=== PATIENT | male | born 1955 | race Caucasian/White ===

== ENCOUNTER 2020-07-19 05:19 | Observation (INO) | payer MEDICARE ==
[2020-07-19 05:49] LABS: #Basophils 0.1 10x3/uL (0.0-0.2); #Eosinphils 0.1 10x3/uL (0.0-0.5); #Neutrophils 9.6 10x3/uL (1.5-8.4); %Basophils 0.5 % (0.0-2.0); %Eosinophils 0.9 % (0.0-6.0); %Lymphocytes 18.6 % (18.0-47.0); %Monocytes 7.1 % (0.0-10.0); %Neutrophils 72.2 % (40.0-75.0); Hemoglobin 16.4 g/dL (13.5-17.5); Mean Corpuscular HGB CONC 34.4 g/dL (32.0-36.0); Mean Corpuscular Hemoglobin 33.2 pg (27.0-33.0); Mean Corpuscular Volume 96.6 fl (81.2-95.1); Mean Platelet Volume 10.1 fl (7.4-10.4); Platelet Count 179 10x3/uL (150-450); RBC Distribution Width 13.2 % (11.5-14.5); Red Blood Cell (RBC) Count 4.94 10x6/uL (4.32-5.72); White Blood Cell (WBC) Count 13.4 10x3/uL (3.5-10.5)
[2020-07-19] MEDS ORDERED: Ondansetron PF 4 MG/2 ML Vial ONE (05:56)
[2020-07-19] MEDS ORDERED: Morphine 4 MG/ML VIAL ONE (05:56)
[2020-07-19] MEDS ORDERED: Nitroglycerin 2% Ointment 1 INCH/1 GM Packet ONE (05:56)
[2020-07-19 06:10] LABS: ALT (SGPT) 29 U/L (8-55); AST (SGOT) 31 U/L (5-34); Albumin 4.2 g/dL (3.4-4.8); Alkaline Phosphatase 130 U/L (40-110); Anion Gap 15 mmol/L (10-20); BUN (Urea Nitrogen) 5 mg/dL (8.4-25.7); Bilirubin, Total 0.7 mg/dL (0.2-1.2); Calc. Creatinine Clearance 0 mL/min (70-130); Calcium 8.7 mg/dL (7.8-10.44); Carbon Dioxide 31 mmol/L (23-31); Chloride 96 mmol/L (98-107); Globulin 3.1 g/dL (2.4-3.5); Glucose 102 mg/dL (80-115); Lipase 30 U/L (8-78); Magnesium 1.4 mg/dL (1.6-2.6); Potassium 3.1 mmol/L (3.5-5.1); Protein, Total 7.3 g/dL (5.8-8.1); Sodium 139 mmol/L (136-145)
[2020-07-19 06:19] LABS: Bilirubin Neg (Negative); Blood, Urine 25 (Negative); Clarity Clear (Clear); Glucose, Urine (Dipstick) Normal (Negative); Ketone, Urine Negative (Negative); Leukocyte 25 (Negative); Nitrite Negative (Negative); Protein, Urine (Dipstick) 30 mg/dl (Neg-Trace); Specific Gravity, Urine 1.015 (1.002-1.036)
[2020-07-19 06:36] LABS: Bacteria/HPF None Seen HPF (None Seen); RBC/HPF 0-3 HPF (0-3); Squamous Epithelial None Seen HPF (0-3); WBC/HPF None Seen HPF (0-3)
[2020-07-19 07:00] LABS: SARS-CoV-2 NAA Rapid Test Not Detected (NotDetected)
[2020-07-19] MEDS ORDERED: Potassium Chloride 20 MEQ TAB PO SCH ×2 (07:00→12:00)
[2020-07-19] MEDS ORDERED: Fentanyl 100 MCG/2 ML VIAL ONE (07:23)
[2020-07-19] MEDS ORDERED: Labetalol HCl 100 MG/20 ML VIAL ONE (07:24)
[2020-07-19] MEDS ORDERED: Aspirin Chewable 81 MG TAB PO SCH (09:00)
[2020-07-19 10:47] LABS: Troponin I Less than 0.010 ng/mL (< 0.028)
[2020-07-19 11:44] VITALS: BMI 28.8
[2020-07-19] MEDS ORDERED: Aspirin 325 MG TAB PO SCH (12:00)
[2020-07-19] MEDS ORDERED: Magnesium 2 GM/50 ML 2 GM in Premix Bag 1 BAG IVPB SCH (12:00)
[2020-07-19 12:32] LABS: Troponin I Less than 0.010 ng/mL (< 0.028)
[2020-07-19] MEDS ORDERED: Ketorolac Tromethamine 30 MG/ML VIAL IVP SCH (13:00)
[2020-07-19] MEDS ORDERED: Nitroglycerin 2% Ointment 1 INCH/1 GM Packet TOP SCH (14:00)
[2020-07-19 14:05] LABS: Cardiac Risk 3.3 (Less than 4.5)
[2020-07-19 17:12] VITALS: BP 114/70; TEMP 97.7
[2020-07-19] MEDS ORDERED: Flecainide 50 MG TAB PO SCH (21:00)
[2020-07-19] MEDS ORDERED: Apixaban 5 MG TAB PO SCH (21:00)
[2020-07-19] MEDS ORDERED: Atorvastatin Calcium 10 MG TAB PO SCH (21:00)
== END 2020-07-19 18:13 | disposition home or self-care (01) ==
LOC: CSHERS 05:19 → CSHTELE 11:29
PROVIDERS: ADMIT Internal Medicine; ATTEND Internal Medicine
DX: R07.89 Other chest pain (principal); I11.0 Hypertensive heart disease with heart failure; I50.32 Chronic diastolic (congestive) heart failure; I25.10 Atherosclerotic heart disease of native coronary artery without angina pectoris; I25.2 Old myocardial infarction; Z95.5 Presence of coronary angioplasty implant and graft; I48.91 Unspecified atrial fibrillation; Z79.01 Long term (current) use of anticoagulants; F17.210 Nicotine dependence, cigarettes, uncomplicated; E87.6 Hypokalemia; E83.42 Hypomagnesemia; D72.829 Elevated white blood cell count, unspecified; Z20.822 Contact with and (suspected) exposure to COVID-19
CPT/HCPCS: 71045; 80053; 80061; 83690; 83735; 83880; 84484 ×2; 85025; 85379; 93005; 96374; 96375 ×2; 99285; G0378; U0002; 36415; 81003; 81015; J1885; J2270; J2405; J3010; J3475

== ENCOUNTER 2021-03-20 18:31 | Observation (INO) | payer MEDICARE ==
[2021-03-20 18:48] LABS: #Eosinphils 0.1 10x3/uL (0.0-0.5); #Monocytes 0.6 10x3/uL (0.0-1.1); #Neutrophils 5.2 10x3/uL (1.5-8.4); %Basophils 0.5 % (0.0-2.0); %Eosinophils 0.8 % (0.0-6.0); %Monocytes 7.7 % (0.0-10.0); %Neutrophils 64.7 % (40.0-75.0); Hemoglobin 15.7 g/dL (13.5-17.5); Mean Corpuscular HGB CONC 34.1 g/dL (32.0-36.0); Mean Corpuscular Hemoglobin 34.9 pg (27.0-33.0); Mean Corpuscular Volume 102.2 fl (81.2-95.1); Mean Platelet Volume 9.7 fl (7.4-10.4); Platelet Count 155 10x3/uL (150-450); RBC Distribution Width 11.9 % (11.5-14.5)
[2021-03-20 19:01] LABS: ALT (SGPT) 28 U/L (8-55); AST (SGOT) 38 U/L (5-34); Albumin 4.2 g/dL (3.4-4.8); Alkaline Phosphatase 116 U/L (40-110); Anion Gap 13 mmol/L (10-20); BUN (Urea Nitrogen) 8 mg/dL (8.4-25.7); Bilirubin, Total 0.6 mg/dL (0.2-1.2); Calc. Creatinine Clearance 0 mL/min (70-130); Calcium 8.6 mg/dL (7.8-10.44); Carbon Dioxide 31 mmol/L (23-31); Chloride 96 mmol/L (98-107); Globulin 2.5 g/dL (2.4-3.5); Glucose 105 mg/dL (80-115); Potassium 3.1 mmol/L (3.5-5.1); Protein, Total 6.7 g/dL (5.8-8.1); Sodium 137 mmol/L (136-145)
[2021-03-20] MEDS ORDERED: Acetaminophen 500 MG TAB ONE (22:13)
[2021-03-21 04:14] LABS: SARS-CoV-2 NAA Rapid Test Not Detected (NotDetected)
[2021-03-21 04:39] LABS: Cardiac Risk 3.3 (Less than 4.5); Cholesterol 144 mg/dl (< 200 Desired); HDL Cholesterol 43 mg/dL (>60 Neg Risk); LDL Cholesterol, Calculated 62 mg/dL; Magnesium 1.4 mg/dL (1.6-2.6); Triglycerides 195 mg/dL (Less than 150)
[2021-03-21 04:46] LABS: Troponin I 0.171 ng/mL (< 0.028)
[2021-03-21] MEDS: Potassium Chloride 20 MEQ TAB PO SCH ×2 (06:00→13:03)
[2021-03-21] MEDS: Nitroglycerin 2% Ointment 1 INCH/1 GM Packet TOP SCH ×2 (06:00→13:03)
[2021-03-21] MEDS ORDERED: Potassium Chloride 20 MEQ TAB ONE (06:06)
[2021-03-21] MEDS ORDERED: Nitroglycerin 2% Ointment 1 INCH/1 GM Packet ONE (06:07)
[2021-03-21 06:43] LABS: Anion Gap 14 mmol/L (10-20); BUN (Urea Nitrogen) 7 mg/dL (8.4-25.7); Calc. Creatinine Clearance 0 mL/min (70-130); Calcium 8.4 mg/dL (7.8-10.44); Carbon Dioxide 28 mmol/L (23-31); Chloride 99 mmol/L (98-107); Glucose 112 mg/dL (80-115); Potassium 3.3 mmol/L (3.5-5.1); Sodium 138 mmol/L (136-145)
[2021-03-21 06:45] LABS: Troponin I 0.156 ng/mL (< 0.028)
[2021-03-21] MEDS ORDERED: Spironolactone 25 MG TAB PO SCH (08:00)
[2021-03-21] MEDS ORDERED: Clopidogrel Bisulfate 75 MG TAB PO SCH (09:00)
[2021-03-21] MEDS ORDERED: Losartan Potassium 50 MG TAB PO SCH (09:00)
[2021-03-21] MEDS ORDERED: Flecainide 50 MG TAB PO SCH (09:00)
[2021-03-21] MEDS ORDERED: Ventolin HFA Inhaler 60 PUFF INHALER ONE (09:38)
[2021-03-21] MEDS ORDERED: Clopidogrel Bisulfate 75 MG TAB ONE (09:38)
[2021-03-21] MEDS ORDERED: Metoprolol Tartrate 25 MG TAB ONE (09:38)
[2021-03-21] MEDS ORDERED: Losartan Potassium 50 MG TAB ONE (09:40)
[2021-03-21] MEDS: Albuterol Sulfate 2.5 mg/3 ml Neb EZPAP SCH ×2 (09:49→13:08)
[2021-03-21 10:54] VITALS: BMI 28.8
[2021-03-21] MEDS ORDERED: Potassium Chloride 20 MEQ TAB PO SCH (13:00)
[2021-03-21 13:02] VITALS: BP 179/89; TEMP 98.2
[2021-03-21] MEDS ORDERED: Rivaroxaban 10 MG TAB PO SCH (18:00)
[2021-03-21] MEDS ORDERED: Atorvastatin Calcium 10 MG TAB PO SCH (21:00)
== END 2021-03-21 14:51 | disposition home or self-care (01) ==
LOC: CSHERS 18:31 → CSHTELE 03-21 00:31 → INTOOBSV 03-21 00:31 → CSHERHOLD 03-21 03:16 → CSHTELE 03-21 08:56
PROVIDERS: ADMIT Family Medicine; ATTEND Family Medicine
DX: R07.9 Chest pain, unspecified (principal); I25.10 Atherosclerotic heart disease of native coronary artery without angina pectoris; I10 Essential (primary) hypertension; E87.6 Hypokalemia; E78.5 Hyperlipidemia, unspecified; R06.2 Wheezing; F17.210 Nicotine dependence, cigarettes, uncomplicated; Z79.899 Other long term (current) drug therapy; I25.2 Old myocardial infarction; Z95.5 Presence of coronary angioplasty implant and graft; Z79.01 Long term (current) use of anticoagulants; Z20.822 Contact with and (suspected) exposure to COVID-19
CPT/HCPCS: 71045; 80048; 80053; 80061; 83690; 83735; 83880; 84443; 84484 ×3; 85025; 93005 ×2; 94640; 99285; G0378 ×2; U0002; 36415; 93010; J7611

== ENCOUNTER 2024-11-17 08:18 | Outpatient (CLI) | payer MEDICARE | END 2024-11-17 08:19 | disposition home or self-care (01) | LOC: CSHSLEEP 08:18 | PROVIDERS: ATTEND Internal Medicine | DX: G47.33 Obstructive sleep apnea (adult) (pediatric) (principal); R06.83 Snoring; E66.9 Obesity, unspecified; Z68.27 Body mass index [BMI] 27.0-27.9, adult | CPT/HCPCS: 95800 ==